=== PATIENT | male | born 1985 | race Caucasian/White ===

== ENCOUNTER 2017-02-19 14:39 | Emergency (ER) | payer SELFPAY ==
[~2017-02-19] VITALS: Ht 167.6 cm; Wt 100.0 kg
[2017-02-19 14:50] VITALS: BP 156/90
== END 2017-02-19 15:15 | disposition home or self-care (01) ==
LOC: ED 15:09
DX: X30.XXXA Exposure to excessive natural heat, initial encounter (principal); Y93.89 Activity, other specified; Y99.8 Other external cause status; Y92.89 Other specified places as the place of occurrence of the external cause
CPT/HCPCS: 99283

== ENCOUNTER 2017-04-01 03:21 | Observation (INO) | payer MEDICARE, OTHER ==
[~2017-04-01] VITALS: Ht 167.6 cm; Wt 98.0 kg
[2017-04-01 04:19] LABS: DAU SCREEN DISCLAIMER
[2017-04-01 04:45] LABS: HEMATOCRIT 45.4 % (39.2-51.8); HEMOGLOBIN 14.4 g/dL (13.7-18.0)
[2017-04-01 04:56] LABS: BLOOD UREA NITROGEN 10 mg/dL (7-18)
[2017-04-01 04:58] LABS: ACETAMINOPHEN < 2 mcg/mL (10-30)
[2017-04-01] MEDS ORDERED: ONDANSETRON ODT 4 MG ONE (09:09)
[2017-04-01] MEDS ORDERED: NICOTINE 21 MG/24 HR PATCH.TD24 ONE (11:57)
[2017-04-01] MEDS ORDERED: IBUPROFEN 200 MG TABLET ONE (11:57)
[2017-04-01] MEDS ORDERED: NICOTINE 21 MG/24 HR PATCH.TD24 TD ONE (12:00)
[2017-04-01] MEDS ORDERED: IBUPROFEN 200 MG TABLET PO ONE (12:00)
[2017-04-01] MEDS ORDERED: DOCUSATE 100 MG CAPSULE PO PRN (15:30)
[2017-04-01] MEDS ORDERED: DIPHENHYDRAMINE 50 MG CAPSULE PO PRN (15:30)
[2017-04-01] MEDS ORDERED: LORazepam 1MG TABLET PO PRN (15:30)
[2017-04-01] MEDS: POTASSIUM CHLORIDE 10 MEQ, MAGNESIUM SULFATE 1 GM, THIAMINE 100 MG, FOLIC ACID 1 MG, MV... IV SCH (15:30)
[2017-04-01] MEDS ORDERED: ALUMINUM/MAG/SIMETHICONE 30 ML UDC PO PRN (15:30)
[2017-04-01 16:14] VITALS: BP 162/79
[2017-04-01 18:37] VITALS: BP 177/94
[2017-04-01] MEDS: BACLOFEN 10 MG TABLET PO SCH ×2 (19:56→21:00)
[2017-04-01] MEDS: LORazepam 1MG TABLET PO PRN (22:30)
[2017-04-02 01:52] VITALS: BP 134/80
[2017-04-02 06:25] LABS: HIV 1&2 ANTIBODY SCREEN Nonreactive (Nonreactive); HIV-1 p24 ANTIGEN Nonreactive (Nonreactive)
[2017-04-02 06:57] VITALS: BP 125/81
[2017-04-02] MEDS: BACLOFEN 10 MG TABLET PO SCH ×4 (08:49→20:39)
[2017-04-02] MEDS: LORazepam 1MG TABLET PO PRN ×3 (10:48→22:42)
[2017-04-02] MEDS: MULTIVITAMINS/MINERALS TABLET PO SCH (10:48)
[2017-04-02] MEDS: ACETAMINOPHEN 325 MG TABLET PO PRN ×3 (10:52→23:42)
[2017-04-02 13:03] VITALS: BP 150/82
[2017-04-02] MEDS: POTASSIUM CHLORIDE 10 MEQ, MAGNESIUM SULFATE 1 GM, THIAMINE 100 MG, FOLIC ACID 1 MG, MV... IV SCH (16:54)
[2017-04-02] MEDS: ENOXAPARIN 40 MG/0.4 ML SQ SCH (17:30)
[2017-04-02 19:14] VITALS: BP 151/93
[2017-04-02] MEDS ORDERED: DIPHENHYDRAMINE 50 MG CAPSULE PO PRN (20:30)
[2017-04-02] MEDS ORDERED: DOCUSATE 100 MG CAPSULE PO PRN (20:30)
[2017-04-02] MEDS: LORazepam 0.5MG TABLET PO PRN (20:38)
[2017-04-02] MEDS: NICOTINE 21 MG/24 HR PATCH.TD24 TD SCH (23:02)
[2017-04-03 02:00] VITALS: BP 130/81
[2017-04-03] MEDS: LORazepam 1MG TABLET PO PRN ×3 (02:19→12:30)
[2017-04-03 05:17] LABS: HEMATOCRIT 42.8 % (39.2-51.8); HEMOGLOBIN 13.6 g/dL (13.7-18.0); WHITE BLOOD COUNT 7.2 x10^3/uL (3.4-10)
[2017-04-03 05:38] LABS: ASPARTATE AMINO TRANSFERASE 13 U/L (15-37); BLOOD UREA NITROGEN 11 mg/dL (7-18)
[2017-04-03 06:31] VITALS: BP 142/109
[2017-04-03] MEDS: BACLOFEN 10 MG TABLET PO SCH ×3 (09:24→21:16)
[2017-04-03] MEDS: MULTIVITAMINS/MINERALS TABLET PO SCH (09:27)
[2017-04-03 12:13] VITALS: BP 145/92
[2017-04-03] MEDS ORDERED: DIPHENHYDRAMINE 50 MG/ML, 1ML IM ONE (16:00)
[2017-04-03] MEDS ORDERED: HALOPERIDOL 5 MG/ML IM PRN (16:00)
[2017-04-03] MEDS: ENOXAPARIN 40 MG/0.4 ML SQ SCH (17:30)
[2017-04-03 19:58] VITALS: BP 136/91
[2017-04-03] MEDS: LORazepam 0.5MG TABLET PO PRN (21:25)
[2017-04-04 03:13] VITALS: BP 107/74
[2017-04-04] MEDS: BACLOFEN 10 MG TABLET PO SCH ×2 (09:44→20:21)
[2017-04-04] MEDS: MULTIVITAMINS/MINERALS TABLET PO SCH (09:44)
[2017-04-04] MEDS: NICOTINE 21 MG/24 HR PATCH.TD24 TD SCH (09:44)
[2017-04-04 09:51] VITALS: BP 150/86
[2017-04-04] MEDS ORDERED: HALOPERIDOL 5 MG/ML IM PRN (12:00)
[2017-04-04] MEDS: LORazepam 1MG TABLET PO PRN ×2 (12:56→16:59)
[2017-04-04] MEDS: GABAPENTIN 100 MG CAPSULE PO SCH ×2 (16:50→20:22)
[2017-04-04] MEDS: ENOXAPARIN 40 MG/0.4 ML SQ SCH (17:30)
[2017-04-04] MEDS ORDERED: SERTRALINE 50MG TABLET PO ONE (18:30)
[2017-04-04] MEDS: LORazepam 0.5MG TABLET PO PRN (20:26)
[2017-04-04 20:41] VITALS: BP 128/64
[2017-04-05] MEDS: LORazepam 1MG TABLET PO PRN ×3 (07:10→12:02)
[2017-04-05 07:27] VITALS: BP 120/91
[2017-04-05] MEDS ORDERED: SERTRALINE 50MG TABLET PO SCH (09:00)
[2017-04-05] MEDS: NICOTINE 21 MG/24 HR PATCH.TD24 TD SCH (09:13)
[2017-04-05] MEDS: GABAPENTIN 100 MG CAPSULE PO SCH (09:14)
[2017-04-05] MEDS: MULTIVITAMINS/MINERALS TABLET PO SCH (09:14)
[2017-04-05] MEDS: BACLOFEN 10 MG TABLET PO SCH (09:14)
[2017-04-05] MEDS ORDERED: GABA-826 PO (14:40)
[2017-04-05] MEDS ORDERED: SERT50TA5 PO (14:40)
== END 2017-04-05 15:30 | disposition home or self-care (01) ==
LOC: ED 09:10 → INTOOBSV 12:33 → EDIP 12:33 → 3E 16:01 → 3NE 18:31 → 3E 04-03 12:04
PROVIDERS: ADMIT Internal Medicine; ATTEND Internal Medicine
DX: R45.851 Suicidal ideations (principal); F10.220 Alcohol dependence with intoxication, uncomplicated; F11.20 Opioid dependence, uncomplicated; F33.2 Major depressive disorder, recurrent severe without psychotic features; I10 Essential (primary) hypertension; E11.9 Type 2 diabetes mellitus without complications; F41.1 Generalized anxiety disorder; E83.51 Hypocalcemia; E66.9 Obesity, unspecified; F41.0 Panic disorder [episodic paroxysmal anxiety]; E44.0 Moderate protein-calorie malnutrition; F15.20 Other stimulant dependence, uncomplicated; Z83.3 Family history of diabetes mellitus; Z82.49 Family history of ischemic heart disease and other diseases of the circulatory system; Z98.84 Bariatric surgery status
CPT/HCPCS: 36415; 71010; 80048; 80053; 80076; 80307; 80329; 82040; 83036; 83735; 84100; 85025; 86703; 86704; 86706; 86708; 86803; 87340; 87491; 87591; 87899; 96365; 96372; 99285; G0378; J1200; J1630; J3411; J3475; J3480; J7030; G0435; G0480

== ENCOUNTER 2017-06-11 03:45 | Observation (INO) | payer MEDICARE, MEDICAID ==
[~2017-06-11] VITALS: Ht 175.3 cm; Wt 96.0 kg
[~2017-06-11 03:45] MED LIST: GABA-826 PO; SERT50TA5 PO
[2017-06-11 05:32] LABS: HEMATOCRIT 43.1 % (39.2-51.8); HEMOGLOBIN 13.9 g/dL (13.7-18.0); WHITE BLOOD COUNT 6.5 x10^3/uL (3.4-10)
[2017-06-11 05:39] LABS: BLOOD UREA NITROGEN 7 mg/dL (7-18)
[2017-06-11 05:41] LABS: ACETAMINOPHEN < 2 mcg/mL (10-30)
[2017-06-11] MEDS ORDERED: NICOTINE 14MG/24 HR PATCH.TD24 TD ONE (09:30)
[2017-06-11] MEDS ORDERED: NICOTINE 14MG/24 HR PATCH.TD24 ONE (09:34)
[2017-06-11 09:46] LABS: DAU SCREEN DISCLAIMER
[2017-06-11] MEDS ORDERED: ONDANSETRON ODT 4 MG PO PRN ×2 (10:00→20:00)
[2017-06-11] MEDS ORDERED: ACETAMINOPHEN 325 MG TABLET PO PRN ×2 (10:00→20:00)
[2017-06-11] MEDS ORDERED: DOCUSATE 100 MG CAPSULE PO PRN ×2 (10:00→20:00)
[2017-06-11] MEDS ORDERED: LORazepam 1MG TABLET PO PRN ×2 (11:30→20:00)
[2017-06-11 12:04] VITALS: BP 128/70
[2017-06-11 19:18] VITALS: BP 113/69
[2017-06-11] MEDS ORDERED: NICOTINE 14MG/24 HR PATCH.TD24 TD SCH (20:00)
[2017-06-12] MEDS ORDERED: NICOTINE 14MG/24 HR PATCH.TD24 TD SCH (07:00)
[2017-06-12 08:00] VITALS: BP 139/83
== END 2017-06-12 09:17 ==
LOC: ED 06:18 → EDIP 09:25 → 3E 12:01
PROVIDERS: ADMIT Hospitalist; ATTEND Hospitalist
DX: R45.851 Suicidal ideations (principal); F19.959 Other psychoactive substance use, unspecified with psychoactive substance-induced psychotic disorder, unspecified; F33.2 Major depressive disorder, recurrent severe without psychotic features; E66.9 Obesity, unspecified; F17.200 Nicotine dependence, unspecified, uncomplicated; F41.1 Generalized anxiety disorder; I10 Essential (primary) hypertension; Z68.31 Body mass index [BMI] 31.0-31.9, adult; Z91.14 Patient's other noncompliance with medication regimen; Z79.899 Other long term (current) drug therapy
CPT/HCPCS: 36415; 80048; 80307; 80329; 82040; 85025; 99285; G0378; Q0177; G0479; G0480

== ENCOUNTER 2017-07-01 03:53 | Observation (INO) | payer MEDICARE, MEDICAID ==
[~2017-07-01] VITALS: Ht 167.6 cm; Wt 90.0 kg
[2017-07-01 04:39] LABS: BLOOD UREA NITROGEN 17 mg/dL (7-18)
[2017-07-01 04:43] LABS: ASPARTATE AMINO TRANSFERASE 20 U/L (15-37)
[2017-07-01 04:47] LABS: ACETAMINOPHEN < 2 mcg/mL (10-30); HEMATOCRIT 41.5 % (39.2-51.8); HEMOGLOBIN 13.3 g/dL (13.7-18.0); WHITE BLOOD COUNT 6.5 x10^3/uL (3.4-10)
[2017-07-01] MEDS ORDERED: NICOTINE 21 MG/24 HR PATCH.TD24 TD ONE ×2 (06:30→09:30)
[2017-07-01 07:15] VITALS: BP 124/78
[2017-07-01 07:42] LABS: DAU SCREEN DISCLAIMER
[2017-07-01] MEDS ORDERED: FOLIC ACID 1 MG TABLET PO SCH (09:30)
[2017-07-01] MEDS ORDERED: ONDANSETRON ODT 4 MG PO PRN (09:30)
[2017-07-01] MEDS ORDERED: THIAMINE 100MG TABLET PO SCH (09:30)
[2017-07-01] MEDS ORDERED: LORazepam 1MG TABLET PO PRN (09:30)
[2017-07-01] MEDS ORDERED: POLYETHYLENE GLYCOL 17 GM PACKET PO PRN (09:30)
[2017-07-01] MEDS ORDERED: ENOXAPARIN 40 MG/0.4 ML SQ SCH (10:00)
[2017-07-02] MEDS ORDERED: SENNA/DOCUSATE TABLET PO SCH (09:00)
== END 2017-07-01 10:44 | disposition home or self-care (01) ==
LOC: ED 05:36 → EDIP 08:26
PROVIDERS: ADMIT Hospitalist; ATTEND Hospitalist
DX: R45.851 Suicidal ideations (principal); F32.9 Major depressive disorder, single episode, unspecified; F11.20 Opioid dependence, uncomplicated; F10.10 Alcohol abuse, uncomplicated; F17.200 Nicotine dependence, unspecified, uncomplicated; I10 Essential (primary) hypertension; E11.9 Type 2 diabetes mellitus without complications; E66.9 Obesity, unspecified; Z82.49 Family history of ischemic heart disease and other diseases of the circulatory system; Z83.3 Family history of diabetes mellitus; Z59.0 Homelessness
CPT/HCPCS: 36415; 80053; 80307; 80329; 83036; 84439; 84443; 85025; 99285; G0378; G0479; G0480